=== PATIENT | male | born 1985 | race Two or more races ===

== ENCOUNTER 2021-12-04 10:26 | Emergency (ER) | payer SELFPAY ==
[~2021-12-04] VITALS: Ht 167.6 cm; Wt 68.0 kg
[2021-12-04 10:30] VITALS: BP 127/78
[2021-12-04] MEDS ORDERED: TDAP [DIPH/PERTUSSIS/TET] 0.5 ML VIAL IM ONE ×2 (10:59→11:00)
--- NOTE | 2021-12-04 11:20 | NUR ---
DR HERRERA AT BEDSIDE FOR LAC REPAIR
--- NOTE | 2021-12-04 12:12 | NUR ---
Patient discharged to home in stable condition. Written and verbal after care instructions given. Patient verbalizes understanding of instruction.
== END 2021-12-04 12:12 | disposition home or self-care (01) ==
LOC: ER 10:29
DX: S71.111A Laceration without foreign body, right thigh, initial encounter (principal); W27.0XXA Contact with workbench tool, initial encounter; Y93.89 Activity, other specified; Y92.89 Other specified places as the place of occurrence of the external cause; Y99.8 Other external cause status
CPT/HCPCS: 12002; 90471; 90715; 99283; A6253; A6403